=== PATIENT | female | born 1985 | race Caucasian/White ===

== ENCOUNTER → 2023-10-05 | Outpatient (CLI) | payer BC ==
--- NOTE | 2023-10-05 13:47 | XR ---
EXAMINATION TYPE: XR scoliosis survey DATE OF EXAM: 10/05/2023 COMPARISON: NONE HISTORY: Scoliosis TECHNIQUE: Weightbearing 2 views of the thoracolumbar spine. FINDINGS: There is dextroconvex scoliosis centered in the mid to lower thoracic spine and reactive le voconvex scoliosis centered in the mid lumbar spine. Calculated aguero angle is 12 degrees using supe rior T4 and superior T11 endplates. Calculated aguero angle is 11 degrees using superior T12 endplate a nd inferior L3 endplate. IMPRESSION: There is S- shaped scoliosis noted as detailed above.
== END | disposition home or self-care (01) ==
LOC: RADXRMAIN 13:04
PROVIDERS: ATTEND Family Medicine
DX: M41.9 Scoliosis, unspecified (principal)
CPT/HCPCS: 72082